=== PATIENT | male | born 1955 | race Caucasian/White ===

== ENCOUNTER 2021-04-20 06:11 | Inpatient (IN) ==
[~2021-04-20 06:11] MED LIST: ceFAZolin 1,000 MG, Sodium Chloride IRRigation 1,000 ML IR ONE
[2021-04-20] MEDS ORDERED: Protamine Sulfate 50 MG/5 ML VIAL IVP ONE ×2 (06:28→10:59)
[2021-04-20] MEDS ORDERED: Heparin 1,000 UNITS/500 mL 500 ML ONE ×2 (06:28→10:59)
[2021-04-20] MEDS ORDERED: *HR* FentaNYL (PF) 100 MCG/2 ML VIAL ONE (06:30)
[2021-04-20] MEDS ORDERED: *HR* Propofol 200 MG/20 ML VIAL IVP ONE ×2 (06:31→11:06)
[2021-04-20] MEDS ORDERED: *HR* Rocuronium Bromide 50 MG/5 ML VIAL ONE ×3 (06:32→15:24)
[2021-04-20] MEDS ORDERED: Ondansetron 4 MG/2 ML VIAL ONE ×2 (06:32→15:33)
[2021-04-20] MEDS ORDERED: Lidocaine -MPF 2% 5 ML VIAL ONE (06:32)
[2021-04-20] MEDS ORDERED: *HR* Succinylcholine 200 MG/10 ML VIAL IVP ONE (06:32)
[2021-04-20] MEDS ORDERED: *HR* Heparin 5,000 UNIT/ML VIAL ONE ×2 (06:37→06:38)
[2021-04-20] MEDS ORDERED: CeFAZolin Syr 2,000MG/20 ML 2,000 MG/20 ML SYRINGE IVPB ONE (06:49)
[2021-04-20] MEDS ORDERED: *HR* Remifentanil 2 MG VIAL IVP ONE (06:58)
[2021-04-20] MEDS ORDERED: Ringers Solution, Lactated 1,000 ML IVC SCH (07:00)
[2021-04-20] MEDS ORDERED: *HR* Midazolam HCl 2 MG/2 ML VIAL ONE (07:11)
[2021-04-20] MEDS ORDERED: *HR* FentaNYL (PF) 100 MCG/2 ML VIAL IVP PRN (07:19)
[2021-04-20] MEDS ORDERED: ceFAZolin 1,000 MG, Sodium Chloride IRRigation 1,000 ML IR ONE (07:45)
[2021-04-20] MEDS ORDERED: EPHEDrine 50 MG/ML VIAL ONE (12:24)
[2021-04-20] MEDS ORDERED: *HR* Remifentanil 1 MG VIAL IVP ONE (14:20)
[2021-04-20] MEDS ORDERED: Acetaminophen IV 1,000 MG/100 ML BAG IVPB ONE (15:19)
[2021-04-20] MEDS ORDERED: Sugammadex Sodium 200 MG/2 ML VIAL IV ONE (15:33)
[2021-04-20] MEDS ORDERED: *HR* HYDROMORPHONE 2 MG/ML VIAL ONE (15:41)
[2021-04-20] MEDS ORDERED: *HR* Labetalol 20 MG/4 ML SYRINGE IVP ONE (16:16)
[2021-04-20] MEDS ORDERED: Acetaminophen 325 MG TABLET PO PRN (18:11)
[2021-04-20] MEDS ORDERED: *HR* Labetalol 20 MG/4 ML SYRINGE IVP PRN (18:11)
[2021-04-20] MEDS ORDERED: Ondansetron 4 MG/2 ML VIAL IVP PRN (18:11)
[2021-04-20] MEDS ORDERED: Nitroglycerin 0.4 MG TAB.SUBL SL PRN (18:11)
[2021-04-20] MEDS ORDERED: Naloxone 0.4 MG/ML INJ IVP PRN (18:11)
[2021-04-20] MEDS: Gabapentin 300 MG CAPSULE PO SCH ×2 (18:50→20:08)
[2021-04-20] MEDS ORDERED: *HR* OxyCODONE Immed Rel 5 MG TABLET PO PRN (19:38)
[2021-04-20] MEDS: carvediloL 25 MG TABLET PO SCH (20:06)
[2021-04-20] MEDS: hydrALAZINE 25 MG TABLET PO SCH (20:06)
[2021-04-21] MEDS: CeFAZolin 2 GM/120 ML BAG IVPB SCH ×2 (00:35→08:13)
[2021-04-21 02:36] LABS: Basophils % 0.1 %; Hematocrit 45.5 % (37.5-50.1); Hemoglobin 14.5 g/dL (12.9-16.9); Immature Granulocytes % 0.4 % (0-4); Lymphocytes # 1.4 K/mcL (0.6-4.6); Mean Corpuscular HGB Conc 31.9 g/dL (31.6-35.5); Mean Corpuscular Hemoglobin 29.1 pg (28.0-33.3); Mean Corpuscular Volume 91.4 fL (83.0-100.0); Mean Platelet Volume 9.5 fL (9.4-12.4); Monocytes # 0.9 K/mcL (0.0-1.3); Monocytes % 6.2 %; Neutrophils # 11.4 K/mcL (1.6-8.9); Platelet Count 182 K/mcL (140-400); Red Blood Count 4.98 M/mcL (4.19-5.50); Red Cell Distribution Width 14.5 % (11.5-14.5); Segmented Neutrophils % 83.3 %; White Blood Count 13.7 K/mcL (4.3-11.1)
[2021-04-21 02:57] LABS: BUN/Creatinine Ratio 21 (6-26); Blood Urea Nitrogen 14 mg/dL (8-23); Calcium 9.2 mg/dL (8.6-10.3); Carbon Dioxide 24 mEq/L (23-29); Chloride 107 mEq/L (98-107); Glucose 149 mg/dL (70-105); Osmolality,Calculated 287 (280-300); Potassium 4.3 mEq/L (3.5-5.1); Sodium 137 mEq/L (136-145); eGFR For African Americans > 60 (> 60); eGFR For Non-African Americans > 60 (> 60)
[2021-04-21 07:23] VITALS: O2SAT 93
[2021-04-21] MEDS: Gabapentin 300 MG CAPSULE PO SCH ×2 (08:12→13:11)
[2021-04-21] MEDS ORDERED: Aspirin Enteric Coated 81 MG Tablet PO SCH (09:00)
[2021-04-21] MEDS ORDERED: amLODIPine 5 MG TABLET PO SCH (09:00)
[2021-04-21] MEDS: carvediloL 25 MG TABLET PO SCH (10:47)
[2021-04-21] MEDS: hydrALAZINE 25 MG TABLET PO SCH ×2 (10:47→13:10)
[2021-04-21 11:18] VITALS: BP 118/52; PULSE 59; TEMP 98.2
== END 2021-04-21 15:30 | disposition home or self-care (01) | DRG 271 ==
LOC: SAMDAY 06:11 → 2NNU 17:34
PROVIDERS: ADMIT Surgery Vascular Surgery; ATTEND Surgery Vascular Surgery

== ENCOUNTER 2021-05-25 10:52 | Inpatient (IN) ==
[2021-05-25] MEDS ORDERED: *HR* Propofol 200 MG/20 ML VIAL IVP ONE (11:03)
[2021-05-25] MEDS ORDERED: Lidocaine HCL 4 ML Topical Solution (Laryng-O-Jet Kit Sterile Pak) TP ONE (11:03)
[2021-05-25] MEDS ORDERED: *HR* Midazolam HCl 2 MG/2 ML VIAL ONE (11:03)
[2021-05-25] MEDS ORDERED: *HR* FentaNYL (PF) 100 MCG/2 ML VIAL ONE (11:03)
[2021-05-25] MEDS ORDERED: *HR* Rocuronium Bromide 50 MG/5 ML VIAL ONE ×2 (11:03→14:45)
[2021-05-25] MEDS ORDERED: Lidocaine -MPF 2% 5 ML VIAL ONE (11:03)
[2021-05-25] MEDS ORDERED: CeFAZolin Syr 2,000MG/20 ML 2,000 MG/20 ML SYRINGE IVPB ONE (11:20)
[2021-05-25] MEDS ORDERED: Ringers Solution, Lactated 1,000 ML IVC SCH ×2 (11:30→20:20)
[2021-05-25] MEDS ORDERED: Pregabalin 75 MG CAPSULE PO ONE (11:40)
[2021-05-25] MEDS ORDERED: *HR* OxyCODONE Immed Rel 5 MG TABLET PO PRN ×2 (11:40→20:55)
[2021-05-25] MEDS ORDERED: *HR* Labetalol 20 MG/4 ML SYRINGE IVP PRN (11:40)
[2021-05-25] MEDS ORDERED: Famotidine 20 MG/2 ML VIAL IVP ONE (11:40)
[2021-05-25] MEDS ORDERED: *HR* HYDROmorphone (PF) 1 MG/ML SYRINGE IVP PRN (11:40)
[2021-05-25] MEDS ORDERED: *HR* HYDROmorphone 2 MG TABLET PO PRN (11:40)
[2021-05-25] MEDS ORDERED: Acetaminophen IV 1,000 MG/100 ML BAG IVPB ONE (11:40)
[2021-05-25] MEDS ORDERED: Protamine Sulfate 50 MG/5 ML VIAL IVP ONE (12:07)
[2021-05-25] MEDS ORDERED: Heparin 1,000 UNITS/500 mL 1,000 ML ONE (12:09)
[2021-05-25] MEDS ORDERED: NiCARdipine 2.5 MG/10 ML Syringe IVPB ONE (12:11)
[2021-05-25] MEDS ORDERED: Heparin 1,000 UNITS/500 mL 500 ML ONE (12:11)
[2021-05-25] MEDS ORDERED: ceFAZolin 1,000 MG, Sodium Chloride IRRigation 1,000 ML IR ONE (12:25)
[2021-05-25] MEDS ORDERED: Ipratropium/Albuterol Neb 3 ML IH ONE (12:41)
[2021-05-25] MEDS ORDERED: EPHEDrine 50 MG/ML VIAL ONE (13:56)
[2021-05-25] MEDS ORDERED: Ondansetron 4 MG/2 ML VIAL ONE (14:04)
[2021-05-25] MEDS ORDERED: *HR* Phenylephrine 10 MG/ML VIAL ONE (15:05)
[2021-05-25] MEDS ORDERED: *HR* HYDROMORPHONE 2 MG/ML VIAL ONE (15:31)
[2021-05-25] MEDS ORDERED: *HR* Heparin 5,000 UNIT/ML VIAL ONE (15:31)
[2021-05-25] MEDS ORDERED: Heparin 1,000 UNITS/500 mL 0 ML ONE (16:50)
[2021-05-25] MEDS ORDERED: Sugammadex Sodium 200 MG/2 ML VIAL IV ONE (16:57)
[2021-05-25] MEDS ORDERED: Ringers Solution, Lactated 1,000 ML ONE (19:35)
[2021-05-25] MEDS ORDERED: Nitroglycerin 0.4 MG TAB.SUBL SL PRN (20:20)
[2021-05-25] MEDS ORDERED: *HR* HYDROcodone/Acet 5/325 mg TABLET PO PRN (20:20)
[2021-05-25] MEDS ORDERED: Acetaminophen 325 MG TABLET PO PRN (20:20)
[2021-05-25] MEDS ORDERED: Naloxone 0.4 MG/ML INJ IVP PRN (20:20)
[2021-05-25] MEDS: hydrALAZINE 25 MG TABLET PO SCH (22:38)
[2021-05-25] MEDS: Gabapentin 300 MG CAPSULE PO SCH (22:38)
[2021-05-26] MEDS: CeFAZolin 2 GM/120 ML BAG IVPB SCH ×3 (00:19→14:11)
[2021-05-26 06:26] LABS: Basophils % 0.2 %; Hematocrit 37.1 % (37.5-50.1); Hemoglobin 12.1 g/dL (12.9-16.9); Immature Granulocytes % 0.4 % (0-4); Lymphocytes # 1.3 K/mcL (0.6-4.6); Lymphocytes % 9.6 %; Mean Corpuscular HGB Conc 32.6 g/dL (31.6-35.5); Mean Corpuscular Hemoglobin 28.8 pg (28.0-33.3); Mean Corpuscular Volume 88.3 fL (83.0-100.0); Mean Platelet Volume 9.9 fL (9.4-12.4); Monocytes # 1.1 K/mcL (0.0-1.3); Monocytes % 7.8 %; Neutrophils # 11.4 K/mcL (1.6-8.9); Platelet Count 191 K/mcL (140-400); Red Cell Distribution Width 14.4 % (11.5-14.5); White Blood Count 13.9 K/mcL (4.3-11.1)
[2021-05-26 06:51] LABS: BUN/Creatinine Ratio 23 (6-26); Blood Urea Nitrogen 14 mg/dL (8-23); Carbon Dioxide 26 mEq/L (23-29); Chloride 109 mEq/L (98-107); Glucose 131 mg/dL (70-105); Osmolality,Calculated 292 (280-300); Potassium 4.6 mEq/L (3.5-5.1); Sodium 140 mEq/L (136-145); eGFR For African Americans > 60 (> 60); eGFR For Non-African Americans > 60 (> 60)
[2021-05-26] MEDS: Gabapentin 300 MG CAPSULE PO SCH ×3 (08:34→16:19)
[2021-05-26] MEDS: hydrALAZINE 25 MG TABLET PO SCH ×2 (08:35→14:07)
[2021-05-26] MEDS ORDERED: Aspirin Enteric Coated 81 MG Tablet PO SCH (09:00)
[2021-05-26] MEDS ORDERED: amLODIPine 5 MG TABLET PO SCH (09:00)
[2021-05-26] MEDS ORDERED: FLU Vac QV 21-22 (6Month+)/PF 0.5 ML SYRINGE IM ONE (10:57)
[2021-05-26 12:03] VITALS: O2SAT 95
[2021-05-26 16:14] VITALS: BP 95/47; PULSE 72; TEMP 98.4
== END 2021-05-26 16:00 | disposition home or self-care (01) | DRG 272 ==
LOC: SAMDAY 10:52 → 2NNU 20:06
PROVIDERS: ADMIT Surgery Vascular Surgery; ATTEND Surgery Vascular Surgery

== ENCOUNTER 2021-11-23 06:09 | Inpatient (IN) ==
[2021-11-23] MEDS ORDERED: *HR* Propofol 200 MG/20 ML VIAL IVP ONE (06:47)
[2021-11-23] MEDS ORDERED: Lidocaine -MPF 2% 2 ML VIAL ONE (06:49)
[2021-11-23] MEDS ORDERED: Ondansetron 4 MG/2 ML VIAL ONE (06:49)
[2021-11-23] MEDS ORDERED: *HR* Succinylcholine 200 MG/10 ML VIAL IVP ONE (06:49)
[2021-11-23] MEDS ORDERED: *HR* Rocuronium Bromide 50 MG/5 ML VIAL ONE (06:49)
[2021-11-23] MEDS ORDERED: *HR* FentaNYL (PF) 100 MCG/2 ML VIAL ONE ×2 (06:57→14:58)
[2021-11-23] MEDS ORDERED: CeFAZolin Syr 2,000MG/20 ML 2,000 MG/20 ML SYRINGE IVPB ONE ×2 (06:59→13:30)
[2021-11-23] MEDS ORDERED: Ringers Solution, Lactated 1,000 ML IVC SCH (07:00)
[2021-11-23] MEDS ORDERED: Heparin 1,000 UNITS/500 mL 1,000 ML ONE (07:15)
[2021-11-23] MEDS ORDERED: *HR* Vasopressin 20 UNIT/ML VIAL ONE (07:27)
[2021-11-23] MEDS ORDERED: Heparin 1,000 UNITS/500 mL 500 ML ONE (07:36)
[2021-11-23] MEDS ORDERED: *HR* OxyCODONE Immed Rel 5 MG TABLET PO PRN ×2 (07:44→16:30)
[2021-11-23] MEDS ORDERED: Promethazine 6.25 MG in Water for inj. (sterile) 20 ML IVPB PRN (07:44)
[2021-11-23] MEDS ORDERED: Ondansetron 4 MG/2 ML VIAL IVP PRN ×2 (07:44→16:30)
[2021-11-23] MEDS ORDERED: ceFAZolin 1,000 MG, Sodium Chloride IRRigation 1,000 ML IR ONE ×2 (07:45→14:04)
[2021-11-23] MEDS ORDERED: *HR* HYDROMORPHONE 2 MG/ML VIAL ONE (09:26)
[2021-11-23] MEDS ORDERED: ceFAZolin 2,000 MG in 0.9 % Sodium Chloride 100 ML IVPB ONE (13:17)
[2021-11-23] MEDS: *HR* HYDROmorphone PF 0.5 MG/0.5 ML SYRINGE IVP PRN ×2 (15:33→15:42)
[2021-11-23] MEDS ORDERED: Artificial Tears SOLN 15 ML BOTTLE ONE (16:01)
[2021-11-23] MEDS ORDERED: Nitroglycerin 0.4 MG TAB.SUBL SL PRN (16:30)
[2021-11-23] MEDS ORDERED: Acetaminophen 325 MG TABLET PO PRN (16:30)
[2021-11-23] MEDS ORDERED: *HR* Labetalol 20 MG/4 ML SYRINGE IVP PRN (16:30)
[2021-11-23] MEDS ORDERED: Naloxone 0.4 MG/ML INJ IVP PRN (16:30)
[2021-11-23] MEDS ORDERED: tiZANidine 4 MG TABLET PO PRN (16:30)
[2021-11-23] MEDS ORDERED: DICLOFENAC SODIUM TP PRN (16:30)
[2021-11-23] MEDS ORDERED: *HR* HYDROcodone/Acet 5/325 mg TABLET PO PRN (16:30)
[2021-11-23] MEDS ORDERED: Artificial Tears SOLN 15 ML BOTTLE BOTH EYES SCH (17:00)
[2021-11-23] MEDS: Gabapentin 300 MG CAPSULE PO SCH ×2 (17:35→21:32)
[2021-11-23] MEDS: hydrALAZINE 25 MG TABLET PO SCH ×2 (17:35→23:03)
[2021-11-23] MEDS: *HR* OxyCODONE Immed Rel 5 MG TABLET PO PRN (19:56)
[2021-11-23] MEDS ORDERED: Albuterol 2.5 MG/3 ML NEBULIZER IH PRN (21:09)
[2021-11-23] MEDS: CeFAZolin 2 GM/120 ML BAG IVPB SCH (21:32)
[2021-11-23] MEDS: cloNIDine HCL 0.1 MG TABLET PO SCH (21:32)
[2021-11-24] MEDS: *HR* OxyCODONE Immed Rel 5 MG TABLET PO PRN (04:10)
[2021-11-24 04:17] LABS: Basophils % 0.2 %; Eosinophils % 0.1 %; Hematocrit 38.9 % (37.5-50.1); Hemoglobin 13.1 g/dL (12.9-16.9); Immature Granulocytes % 0.5 % (0-4); Lymphocytes # 1.8 K/mcL (0.6-4.6); Lymphocytes % 12.4 %; Mean Corpuscular HGB Conc 33.7 g/dL (31.6-35.5); Mean Corpuscular Hemoglobin 27.7 pg (28.0-33.3); Mean Corpuscular Volume 82.2 fL (83.0-100.0); Mean Platelet Volume 9.1 fL (9.4-12.4); Monocytes # 1.2 K/mcL (0.0-1.3); Monocytes % 8.3 %; Neutrophils # 11.6 K/mcL (1.6-8.9); Platelet Count 161 K/mcL (140-400); Red Blood Count 4.73 M/mcL (4.19-5.50); Red Cell Distribution Width 17.4 % (11.5-14.5); Segmented Neutrophils % 78.5 %; White Blood Count 14.7 K/mcL (4.3-11.1)
[2021-11-24 04:37] LABS: BUN/Creatinine Ratio 19 (6-26); Blood Urea Nitrogen 15 mg/dL (8-23); Calcium 8.8 mg/dL (8.6-10.3); Carbon Dioxide 27 mEq/L (23-29); Chloride 106 mEq/L (98-107); Glucose 132 mg/dL (70-105); Osmolality,Calculated 285 (280-300); Potassium 4.1 mEq/L (3.5-5.1); Sodium 136 mEq/L (136-145); eGFR For African Americans > 60 (> 60); eGFR For Non-African Americans > 60 (> 60)
[2021-11-24] MEDS: CeFAZolin 2 GM/120 ML BAG IVPB SCH ×2 (06:11→13:15)
[2021-11-24] MEDS: hydrALAZINE 25 MG TABLET PO SCH (08:06)
[2021-11-24] MEDS: cloNIDine HCL 0.1 MG TABLET PO SCH (08:06)
[2021-11-24] MEDS: Gabapentin 300 MG CAPSULE PO SCH ×2 (08:06→13:15)
[2021-11-24] MEDS ORDERED: Aspirin Enteric Coated 81 MG Tablet PO SCH (09:00)
[2021-11-24] MEDS ORDERED: amLODIPine 5 MG TABLET PO SCH (09:00)
[2021-11-24] MEDS ORDERED: Azithromycin 250 MG TABLET PO SCH (09:00)
[2021-11-24] MEDS ORDERED: allopurinoL 300 MG TABLET PO SCH (09:00)
[2021-11-24] MEDS ORDERED: Cholecalciferol (D-3) 1,000 UNIT (25MCG) TABLET PO SCH (09:00)
[2021-11-24 12:20] VITALS: BP 102/52; TEMP 98.2
[2021-11-24 14:06] VITALS: PULSE 80; O2SAT 96
== END 2021-11-24 15:30 | disposition home or self-care (01) | DRG 254 ==
LOC: SAMDAY 06:09 → 2NNU 15:40
PROVIDERS: ADMIT Surgery Vascular Surgery; ATTEND Surgery Vascular Surgery